=== PATIENT | female | born 1950 | race Caucasian/White ===

== ENCOUNTER 2019-12-12 09:12 | Inpatient (IN) ==
--- NOTE | 2019-12-05 17:09 | EKG Report ---
Test Performed on : 12/05/2019 4:56:23 PM Test Reason : PAT Blood Pressure : / mmHG Vent. Rate : 069 BPM Atrial Rate : 069 BPM P-R Int : 182 ms QRS Dur : 088 ms QT Int : 392 ms P-R-T Axes : 047 021 037 degrees QTc Int : 420 ms Normal sinus rhythm. Normal ECG No previous ECGs available Confirmed by Evelina Hobbs MD ([id number]) on 12/06/2019 8:41:09 AM
[2019-12-05 17:56] LABS: URINE SOURCE CLEAN CATCH
[2019-12-05 18:08] LABS: BILIRUBIN URINE NEGATIVE (NEGATIVE); BLOOD URINE NEGATIVE (NEGATIVE); COLOR YELLOW; GLUCOSE URINE NEGATIVE (NEGATIVE); KETONE URINE NEGATIVE (NEGATIVE); LEUKOCYTES URINE NEGATIVE (NEGATIVE); NITRITE URINE NEGATIVE (NEGATIVE); PH URINE 5.5; PROTEIN URINE NEGATIVE (NEGATIVE); SP GRAVITY URINE 1.007; TURBIDITY URINE CLEAR (CLEAR); UROBILINOGEN URINE NORMAL (NORMAL)
[2019-12-05 18:09] LABS: UR EPITHELIAL CELLS <10 /HPF (<10); URINE BACTERIA NEGATIVE /HPF; URINE RBC <10 /HPF (<10); URINE WBC <10 /HPF (<10)
[2019-12-05 18:15] LABS: BASO# 0.05 X1000 (0.0-0.2); BASO% 0.5 % (0.0-0.8); EOS# 0.34 X1000 (0.0-0.7); EOS% 3.7 % (0.0-10.0); HEMATOCRIT 38.6 % (37.0-47.0); HEMOGLOBIN 13.2 g/dL (12.0-16.0); LYMPH# 2.12 X1000 (1.2-3.4); LYMPH% 22.9 % (20.5-51.1); MCH 29.7 PG (27-31); MCHC 34.2 g/dL (33-37); MCV 86.7 FL (81-99); MONO# 0.76 X1000 (0.11-0.59); MONO% 8.2 % (1.7-9.3); MPV 11.9 FL (7.4-10.4); NEUT# 5.98 X1000 (1.4-6.5); NEUT% 64.7 % (42.2-75.2); PLT 170 X1000 (130-400); RBC 4.45 XMIL (4.2-5.4); RDW 12.3 % (11.5-14.5); WBC 9.25 X1000 (4.8-10.8)
[2019-12-05 18:16] LABS: INR 1.01; PROTIME 13.4 Seconds (11.0-16.0)
[2019-12-05 18:17] LABS: PTT 32.1 Seconds (22.3-41.8)
[2019-12-05 18:19] LABS: HEMOGLOBIN A1C 5.4 % (4.8-6.0)
[2019-12-05 18:25] LABS: ALBUMIN 4.2 g/dL (3.5-5.0); CALCIUM 9.9 mg/dL (8.8-10.2); POTASSIUM 3.4 mmol/L (3.5-5.1)
[2019-12-12] MEDS ORDERED: COLACE ONE (09:35)
[2019-12-12] MEDS ORDERED: REGLAN ONE (09:35)
[2019-12-12] MEDS ORDERED: PEPCID ONE (09:35)
[2019-12-12] MEDS ORDERED: LYRICA ONE (09:35)
[2019-12-12] MEDS ORDERED: CELEBREX ONE (09:35)
[2019-12-12] MEDS ORDERED: LR 1,000 ML ONE (09:36)
[2019-12-12] MEDS ORDERED: VANCOMYCIN 1 GM/NS 1 GM/250 ML IVPB ONE (09:36)
[2019-12-12] MEDS ORDERED: VERSED ONE (10:09)
[2019-12-12] MEDS ORDERED: FENTANYL ONE (10:09)
[2019-12-12] MEDS ORDERED: DIPRIVAN 1% ONE (10:09)
[2019-12-12] MEDS ORDERED: TORADOL ONE ×2 (10:58→12:26)
[2019-12-12] MEDS ORDERED: MARCAINE 0.25% PF ONE (10:58)
[2019-12-12] MEDS ORDERED: SODIUM CHLORIDE 0.9% ONE (10:58)
[2019-12-12] MEDS ORDERED: CYKLOKAPRON 1,000 MG/NS 1,000 MG/100 ML IVPB ONE (10:58)
[2019-12-12] MEDS ORDERED: DURAMORPH ONE (10:58)
[2019-12-12] MEDS ORDERED: EXPAREL 1.3% ONE (10:59)
[2019-12-12] MEDS ORDERED: NEOSPORIN G.U. IRRIGANT ONE (10:59)
[2019-12-12] MEDS ORDERED: VANCOMYCIN ONE (12:05)
[2019-12-12] MEDS ORDERED: ZOFRAN ONE (12:26)
[2019-12-12] MEDS ORDERED: OFIRMEV 1000 MG/ISOTONIC SOLN 1,000 MG/100 ML BOTTLE ONE (12:26)
[2019-12-12] MEDS ORDERED: PITRESSIN ONE (12:26)
[2019-12-12] MEDS ORDERED: ZEMURON ONE (12:26)
[2019-12-12] MEDS ORDERED: XYLOCAINE-MPF 2% ONE (12:26)
[2019-12-12] MEDS ORDERED: EPHEDRINE ONE (12:26)
[2019-12-12] MEDS ORDERED: ROBINUL ONE (12:26)
[2019-12-12] MEDS ORDERED: DECADRON ONE (12:26)
[2019-12-12 12:28] LABS: URINE SOURCE CATH
[2019-12-12 12:31] LABS: BILIRUBIN URINE NEGATIVE (NEGATIVE); BLOOD URINE NEGATIVE (NEGATIVE); COLOR YELLOW; GLUCOSE URINE NEGATIVE (NEGATIVE); KETONE URINE NEGATIVE (NEGATIVE); LEUKOCYTES URINE NEGATIVE (NEGATIVE); NITRITE URINE NEGATIVE (NEGATIVE); PH URINE 5.5; PROTEIN URINE TRACE mg/dL (NEGATIVE); SP GRAVITY URINE 1.018; TURBIDITY URINE CLEAR (CLEAR); UROBILINOGEN URINE 2 mg/dL (NORMAL)
[2019-12-12 12:33] LABS: UR EPITHELIAL CELLS <10 /HPF (<10); URINE BACTERIA NEGATIVE /HPF; URINE RBC <10 /HPF (<10); URINE WBC <10 /HPF (<10)
[2019-12-12] MEDS ORDERED: NEOSTIGMINE ONE (12:44)
[2019-12-12] MEDS: DILAUDID ONE ×4 (14:23→14:50)
[2019-12-12] MEDS ORDERED: NS 1,000 ML ONE (14:26)
[2019-12-12] MEDS ORDERED: OXY IR ONE (14:40)
[2019-12-12] MEDS ORDERED: OXY IR PO PRN (15:00)
[2019-12-12] MEDS: NS 1,000 ML IV SCH (15:00)
[2019-12-12] MEDS ORDERED: ZOFRAN PO PRN (15:00)
[2019-12-12] MEDS ORDERED: MORPHINE IV PRN ×2 (15:00)
--- NOTE | 2019-12-12 15:09 | OPERATIVE NOTE ---
PROCEDURE DATE: 12/12/2019 PREOPERATIVE DIAGNOSIS: Right painful total shoulder arthroplasty with chronic rotator cuff tear. POSTOPERATIVE DIAGNOSIS: Right painful total shoulder arthroplasty with chronic rotator cuff tear. PROCEDURES: Revision arthroplasty right shoulder to reverse total shoulder arthroplasty with DePuy Delta Xtend size 12 cemented stem, a 38+,9 humeral cup, a 38+, 6 mm lateralized eccentric Glenosphere and a standard metaglene. SURGEON: Dr. Flores ADMISSIONS ASSISTANT: MITA Ruth who was necessary for proper positioning, placing extremity, retraction during the case and improved efficiency. SECOND INSURANCE LOSS ADJUSTER: MITA Baxter ANESTHESIA: General. IV FLUIDS: 2000 mL lactated Ringer. ESTIMATED BLOOD LOSS: 100 mL. COMPLICATIONS: None. INDICATION: The patient is 69-year-old female who is status post right total shoulder arthroplasty last summer per Dr. Magallon. She has had pain, discomfort and limited mobility. She has also had x-rays that revealed superior subluxation of humeral head and given the clinical findings as well as the radiographic findings, it was consistent with chronic rotator cuff tear. Given patient's continued discomfort, a recommendation to proceed with revision arthroplasty was offered. Risks and benefits of surgery were explained, including the risks of anesthesia, , bleeding, infection, failure to relieve pain, postoperative stiffness, nerve injury, blood clots, and other imponderables. All questions were answered. The patient and family wished to proceed. DETAILS OF OPERATION: The patient taken on the operating room and placed supine on the operating table. Once adequate anesthesia was obtained, patient placed semi-Aceves beach-chair position. The right shoulder was subsequently prepped and draped in usual sterile fashion. A standard deltopectoral incision was made with the skin knife. Hemostasis was obtained with electrocautery. The deltopectoral interval was then developed. Retractors were then placed. The patient did have evidence of a chronic rotator cuff tear. Some of the remaining tissue anteriorly was released. The humeral head was then identified. It was then removed without difficulty. An osteotome was then used circumferentially in the superior aspect of the stem. A vice check cashier was placed on the superior aspect and was then removed without difficulty. After this had been performed, attention then turned to the glenoid. Retractors then placed in position. A small osteotome was used to remove the glenoid. She had some indwelling cement and did retain some of the pegs in the glenoid, however, distally surface after reaming was conducted. Guide was then placed in position. Guide pins were placed. Reaming was then performed. The central hole was then dilated. After this had been performed, the wound was copiously irrigated with antibiotic pulsatile lavage. A standard metaglene was then placed. Two locking screws were placed and 2 nonlocking screws. The wound was copiously irrigated once again. A 38+, 6 mm lateralized eccentric Glenosphere was then placed with the eccentricity placed inferiorly. Attention turned to the proximal humerus where the trial stem was placed into position to determine the appropriate height. After this had been confirmed, vancomycin was mixed with cement on the back table. Copious irrigation performed of the intramedullary canal. A size 12, Delta Xtend cemented stem was then placed in position. This was cemented in the appropriate height in an approximately 15 degrees of retroversion. After the cement had cured, a trial cup size +38, +9 humeral cup appeared to be correct size. The trial cup was removed. Copious irrigation was performed antibiotic pulsatile lavage. A 38, +9 humeral cup was then placed. The shoulder was reduced, carried through range of motion with excellent stability and range of motion. Exparel was placed in the deep soft tissue, as well as subcutaneous tissue. The wound was copiously with antibiotic pulsatile lavage. A 2-0 Vicryl was then used to repair the subcutaneous tissue, followed by running 2-0 Prolene. Benzoin and Steri-Strips applied. Adaptic, sterile 4 x 4, ABD pad, and tape to the right shoulder followed by shoulder immobilizer. All counts were correct. The patient tolerated the procedure well and was transferred to the recovery room in stable condition. cc: Antoni Flores MD
[2019-12-12] MEDS ORDERED: CYKLOKAPRON 1,000 MG/NS 1,000 MG/100 ML IVPB IV ONE (18:00)
[2019-12-12] MEDS: TYLENOL PO SCH (19:50)
[2019-12-12] MEDS ORDERED: ARICEPT PO SCH (21:00)
[2019-12-12] MEDS ORDERED: LIPITOR PO SCH (21:00)
[2019-12-12] MEDS ORDERED: CYMBALTA PO SCH (21:00)
[2019-12-12] MEDS ORDERED: SENOKOT PO SCH (21:00)
[2019-12-12] MEDS: ANTIVERT PO SCH (22:45)
[2019-12-12] MEDS ORDERED: VANCOMYCIN 1 GM/NS 1 GM/250 ML IVPB IV ONE (23:30)
[2019-12-13] MEDS: TYLENOL PO SCH ×3 (03:36→14:37)
[2019-12-13] MEDS: MORPHINE IV PRN ×2 (03:47→06:59)
[2019-12-13] MEDS: NS 1,000 ML IV SCH (03:55)
[2019-12-13] MEDS: OXY IR PO PRN ×4 (05:42→16:59)
[2019-12-13] MEDS: PROTONIX PO SCH ×2 (05:43→08:05)
[2019-12-13] MEDS: ANTIVERT PO SCH ×2 (05:44→14:36)
--- NOTE | 2019-12-13 06:59 | Diag Imaging Result Doc PS360 ---
EXAM: SHOULDER 1 VIEW RIGHT 12/13/2019 HISTORY: postop TECHNIQUE: Portable one view COMMENT: There is a total shoulder arthroplasty. There are degenerative changes in the acromioclavicular joint. No evidence of acute bony abnormality is present. IMPRESSION: Postsurgical changes. Osteoarthritis. Electronically signed by Rhett Anaya 12/13/2019 6:57 AM
[2019-12-13 07:24] LABS: HEMATOCRIT 27.4 % (37.0-47.0)
[2019-12-13 07:49] LABS: AGAP 12; BUN 10 mg/dL (8-22); CALCIUM 8.4 mg/dL (8.8-10.2); CHLORIDE 100 mmol/L (98-107); COSMO 270; CREATININE 0.8 mg/dL (0.5-0.9); ESTIMATED GFR > 60; GLUCOSE 120 mg/dL (70-104); POTASSIUM 3.9 mmol/L (3.5-5.1); SODIUM 135 mmol/L (136-145); TCO2 23 mmol/L (25-35)
[2019-12-13] MEDS: FLEXERIL PO SCH ×2 (08:06→14:37)
--- NOTE | 2019-12-13 08:23 | ORTHOPAEDICS PROGRESS NOTE ---
DATE: 12/13/2019 SUBJECTIVE: Ms. Soliz is status post day 1 of a revision arthroplasty of the right shoulder to reverse total shoulder arthroplasty. She was resting comfortably in bed this morning with no complaints. OBJECTIVE: Ms. Soliz is lying in bed this morning. Her dressing to her surgical incision is clean, dry, and intact. There is no active drainage. She is able to move her fingers and her wrist with no difficulty. Her sensation is intact distally. She has no complaints at this time. ASSESSMENT: Status post day 1 revision arthroplasty of the right shoulder to reverse total shoulder arthroplasty. PLAN: Ms. Soliz will be going home today after she completes physical therapy. She will be having 2 weeks of home physical therapy prior to her followup in our office. She will be following up on the and we will resume her outpatient physical therapy at that time. She will not be requiring any prescriptions for pain medication as she previously was prescribed a pain medication from Dr. Carter. Dictated by MITA Baxter for Antoni Flores MD cc: Antoni Flores MD
[2019-12-13] MEDS ORDERED: TENORMIN PO SCH (09:00)
[2019-12-13] MEDS ORDERED: PERIDEX MT SCH (09:00)
[2019-12-13 15:46] VITALS: BP 110/74
== END 2019-12-13 17:54 | disposition home health service (06) | DRG 483 ==
LOC: SURHOLD 09:12 → 4N 12:45
PROVIDERS: ADMIT Orthopaedic Surgery Adult Reconstructive Orthopaedic Surgery; ATTEND Orthopaedic Surgery Adult Reconstructive Orthopaedic Surgery